=== PATIENT | female | born 1960 | race Caucasian/White ===

== ENCOUNTER → 2016-09-23 | Outpatient (CLI) | payer OTHER | END | disposition home or self-care (01) | LOC: RAD.S 10:15 | DX: Z12.31 Encounter for screening mammogram for malignant neoplasm of breast (principal) ==

== ENCOUNTER 2017-01-07 02:04 | Emergency (ER) | payer OTHER ==
--- NOTE | 2017-01-10 11:58 | ER ---
ADMIT: 01/07/2017 RM/LOC: [facility] MR#: [id number] [address] [id number] [place], [place] Abena [address] [place] [address] Emergency Room Report SEX: F AGE: 56 : 1960 DATE: 01/07/2017 HISTORY OF PRESENT ILLNESS: The patient is a 56-year-old female, who came to the ER with chief complaint of left lower quadrant pain and also dysuria and frequency for the last 2 days. The patient states she has similar symptoms a year ago, but it was resolved by itself spontaneously. The patient denies any nausea, vomiting, or fever at home. The patient states the pain is more like aching in her left lower quadrant and also the patient complains of urinary problem too. PHYSICAL EXAMINATION: GENERAL: The patient is in [id number] distress, afebrile. HEAD AND NECK: Normal. CHEST: Clear bilaterally. HEART: Normal heart sounds. ABDOMEN: Soft without any tenderness or rebound, the patient has no guarding, the patient has no CVA tenderness. EXTREMITIES: There is no swelling in extremities and the rest of the physical examination is normal. The patient also denies any vaginal discharge. Creatinine level was 0.9. The patient had 11,900 white blood cells. Urine was positive for 197 white blood cells and white blood cell clumps. With the diagnosis of UTI, the patient received Keflex in the ER, the patient was discharged home with a prescription for Keflex, follow up with the primary doctor in 10 days and patient received return precautions. The patient was discharged to home and pain was effectively controlled in the ER. Chuck Adamson MD/ olesya JOB #: [id number] CC: Chuck Adamson MD, Attending Physician Jose James MD, Family Physician
== END 2017-01-07 03:35 | disposition home or self-care (01) ==
LOC: ER 02:04
DX: N39.0 Urinary tract infection, site not specified (principal); Z98.890 Other specified postprocedural states; Z79.899 Other long term (current) drug therapy